=== PATIENT | male | born 1950 | race Caucasian/White ===

== ENCOUNTER 2020-04-30 14:35 | Emergency (ER) | payer OTHER ==
[~2020-04-30] VITALS: Ht 172.7 cm; Wt 77.1 kg
[2020-04-30 15:06] VITALS: BP 105/77
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
--- NOTE | 2020-04-30 17:15 | NUR ---
pt taken to CT scan via WC.
[2020-04-30 18:15] VITALS: BP 102/75
--- NOTE | 2020-04-30 18:16 | NUR ---
CT AND X-RAY READS HANDED TO PT TO F/U WITH PMD TYLENOL AND MOTRIN FOR PAIN ALSO HEAT PADS TO BACK TOLERATED Patient discharged with v/s stable. Written and verbal after care instructions given and explained. Patient verbalized understanding. Ambulatory with steady gait. All questions addressed prior to discharge. Advised to follow up with PMD.
== END 2020-04-30 18:16 | disposition home or self-care (01) ==
LOC: MED 14:35
DX: M54.6 Pain in thoracic spine (principal); M25.551 Pain in right hip; R42 Dizziness and giddiness; V49.88XA Car occupant (driver) (passenger) injured in other specified transport accidents, initial encounter; Y93.89 Activity, other specified; Y92.89 Other specified places as the place of occurrence of the external cause; Y99.8 Other external cause status
CPT/HCPCS: 72072; 72128; 93005; 99285